=== PATIENT | female | born 1950 | race Caucasian/White ===

== ENCOUNTER → 2024-10-05 14:31 | Outpatient (CLI) | payer MEDICARE, SELFPAY ==
--- NOTE | 2024-10-05 14:34 | DI.RAD.S_ITS ---
PROCEDURE: XR DEXA AXIAL SKELETON INDICATIONS: postmenopausal COMPARISON: None. FINDINGS: Lumbar Spine: Bone mineral density 0.746 g/cm2, T score -2.7. Left Femoral Neck: Bone mineral density 0.444 g/cm2, T score -3.6. Left Hip: Bone mineral density 0.572 g/cm2, T score -3.0. Fracture Risk Calculation (when applicable): 10-year fracture risk of a major osteoporotic fracture 28 percent and of a hip fracture 17 percent. (T score greater or equal to -1.0 to: NORMAL) (T score from -1.1 to -2.4: OSTEOPENIA) (T score less than or equal to -2.5: OSTEOPOROSIS) IMPRESSION: Osteoporosis--- recommend repeat DEXA in 2 years or less for reassessment of response to treatment. Follow-up guidelines as follows: Osteoporosis: Consider a repeat DEXA and Vertebral Fracture Assessment (VFA) exam in 2 years or sooner if medically necessary, to reassess this patient's status. Osteopenia: Consider a repeat DEXA in 2-3 years to reassess this patient's status, or if there is a new clinical indication. Normal: Consider a repeat DEXA in 5 years or sooner, or if there is a new clinical indication. All treatment decisions require clinical judgment and consideration of individual patient factors, including patient preferences, comorbidities, previous drug use, risk factors not captured in the FRAX model (e.g., frailty, falls, vitamin D deficiency, increased bone turnover, interval significant decline in bone density ) and possible under- or over-estimation of fracture risk by FRAX. In addition, the NOF Guide recommends that FDA-approved medical therapies be considered in postmenopausal women and men age >= 50 years with a: * Hip or vertebral (clinical or morphometric) fracture * T-score of <=-2.5 at the spine or hip * Ten-year fracture probability by FRAX of >= 3% for hip fracture or >=20% for major osteoporotic fracture. Dictated by: Emil Ocasio M.D. on 10/06/2024 at 21:07 Approved by: Emil Ocasio M.D. on 10/06/2024 at 21:09
== END ==
PROVIDERS: Referring Provider Family Medicine; Visit Provider Family Medicine
DX: M81.0 Age-related osteoporosis without current pathological fracture (principal); Z78.0 Asymptomatic menopausal state
CPT/HCPCS: 77080

== ENCOUNTER → 2024-10-14 07:41 | Outpatient (CLI) | payer MEDICARE, SELFPAY ==
--- NOTE | 2024-10-14 07:42 | DI.CT.S_ITS ---
PROCEDURE: CT LUNG LOW DOSE SCREENING INDICATIONS: HX SMOKING,TOBACCO USE DISORDER TECHNIQUE: Noncontrast 2.0-2.5 mm thick sections acquired from the pulmonary apices to the posterior costophrenic angles. 7 mm thick axial MIP, and 5 mm coronal and sagittal reformats were then acquired. For radiation dose reduction, the following was used: automated exposure control, adjustment of mA and/or kV according to patient size. COMPARISON: None. FINDINGS: Image quality: Diagnostic. Lungs and Pleura: Solid 4 mm nodule right lower lobe, 3/156, part solid, subpleural left lower lobe nodule measuring 5 mm, 3/133. Moderate bilateral bronchial wall thickening. Mild upper lobe centrilobular emphysema. No acute consolidations or ground-glass opacities. No pleural effusion or pneumothorax. Lower Neck: No enlarged lymph nodes. Thyroid: Normal CT appearance. Axillae: No enlarged lymph nodes. Chest Wall: No suspicious chest wall lesions. Bones: No suspicious bone lesion. Mild degenerative changes in the spine. Thoracic Vessels: The aorta and pulmonary arteries demonstrate normal size. Mediastinum and Shaniqua: No enlarged lymph nodes. Heart: Heart size is normal. No pericardial effusion. Minor coronary artery calcification. Esophagus: No wall thickening. No hiatal hernia. Upper Abdomen: 2.7 cm right adrenal nodule with indeterminate Hounsfield units. No other definite adrenal nodules given technique. Visible portions of upper abdominal organs are otherwise normal. IMPRESSION: Bilateral 4 and 5 mm nodules in the lower lungs LUNG-RADS two; Continue annual low-dose chest CT screening as long as the patient meets established criteria. Clinically Significant Non-pulmonary Findings: Right adrenal nodule. Recommend correlation with biochemical lab values and renal protocol CT or MRI. Dictated by: Donna Hgiuera M.D. on 10/14/2024 at 14:08 Approved by: Donna Higuera M.D. on 10/14/2024 at 14:16
== END ==
PROVIDERS: PCP Family Medicine; Referring Provider Family Medicine; Visit Provider Family Medicine
DX: J43.2 Centrilobular emphysema (principal); R91.8 Other nonspecific abnormal finding of lung field; E27.9 Disorder of adrenal gland, unspecified; F17.219 Nicotine dependence, cigarettes, with unspecified nicotine-induced disorders
CPT/HCPCS: 71271

== ENCOUNTER → 2024-12-20 10:35 | Outpatient (CLI) | payer MEDICARE, SELFPAY ==
--- NOTE | 2024-12-20 10:37 | DI.CT.S_ITS ---
PROCEDURE: CT ABDOMEN ADRENAL PROTOCOL INDICATIONS: Adrenal adenoma TECHNIQUE: Noncontrast 3 mm thick sections acquired from the diaphragms to the iliac crests. After the administration of intravenous contrast, 3 mm thick venous-phase and 15- minute delayed images acquired from the diaphragms to the iliac crests. For radiation dose reduction, the following was used: automated exposure control, adjustment of mA and/or kV according to patient size. COMPARISON: [facility], CT, CT LUNG LOW DOSE SCREENING, 10/14/2024, 7:54. FINDINGS: Image quality: Excellent. Lower chest: Unremarkable. ABDOMEN: Adrenal Glands: Right adrenal nodule measuring 1.9 cm, (/). Noncontrast phase: 26 Hounsfield units. Portal venous phase: 118 Hounsfield units. Delayed phase: 47 Hounsfield units. Absolute Washout: 77 %. Absolute washout of 60% or higher is consistent with an adenoma. Relative Washout: 60 %. Relative washout of 40% or higher is consistent with an adenoma. No left adrenal nodule. Liver: A few small cysts. Gallbladder: No radiopaque gallstones or wall thickening. Biliary ducts: No biliary dilation. Pancreas: No ductal dilation. Spleen: Size is within normal limits. Kidneys and Ureters: No hydronephrosis. No solid mass. No complex renal cystic lesion which requires follow up. Excreted contrast in the collecting system. Stomach and Bowel: Normal colonic caliber, without significant wall thickening. Peritoneum: No abnormal intraperitoneal fluid. No free air. Ventral Wall: No hernia. Abdominal Nodes: No retroperitoneal or mesenteric adenopathy by size criteria. Vessels: Aorta and inferior vena cava are normal in size. Bones: No aggressive osseous abnormality. IMPRESSION: Right adrenal nodule measuring 1.9 cm. Imaging characteristics in keeping with a benign adenoma. A few benign hepatic cysts. No kidney stones. Dictated by: Karthik Miller M.D. on 12/20/2024 at 14:30 Approved by: Karthik Miller M.D. on 12/20/2024 at 14:55
[2024-12-20 11:05] LABS: Estimated Glomerular Filt Rate > 60 mL/min (>60)
== END ==
LOC: CT 10:37
PROVIDERS: PCP Family Medicine; Referring Provider Family Medicine; Visit Provider Family Medicine
DX: D35.01 Benign neoplasm of right adrenal gland (principal); K76.89 Other specified diseases of liver
CPT/HCPCS: 36415; 74170; 82565; Q9967